=== PATIENT | female | born 1980 | race Caucasian/White ===

== ENCOUNTER 2025-05-03 22:22 | Inpatient (IN) | payer OTHER ==
[~2025-05-03] VITALS: Ht 167.6 cm; Wt 75.0 kg
[2025-05-03 23:17] LABS: PLATELET COUNT (AUTO) 434 K/uL (150-450); RED BLOOD CELL COUNT(AUTO) 4.93 MIL/uL (4.00-5.20); RED CELL DISTRIBUTION WIDTH 16.2 % (11.5-14.5); WHITE BLOOD COUNT (AUTO) 6.7 K/uL (4.5-11.0)
[2025-05-03 23:18] LABS: COVID AG,FIA SOURCE NASAL SWAB
[2025-05-03 23:19] LABS: APPEARANCE,URINE HAZY (CLEAR); GLUCOSE, URINE (UA) NEGATIVE (NEGATIVE); LEUKOCYTE ESTERASE ,URINE TRACE (NEGATIVE); NITRATE,URINE POSITIVE (NEGATIVE); OCCULT BLOOD,URINE NEGATIVE (NEGATIVE); PH,URINE DRUG SCREEN 6.0 (5.0-8.0); SPECIFIC GRAVITIY, URINE 1.027 (1.003-1.030)
[2025-05-03 23:23] LABS: ALCOHOL, URINE DRUG SCREEN NEGATIVE (NEGATIVE); AMPHET/METH SCREEN,URINE NEGATIVE (NEGATIVE); BARBITURATE SCREEN, URINE NEGATIVE (NEGATIVE); CANNABINOID SCREEN,URINE NEGATIVE (NEGATIVE); COCAINE SCREEN,URINE NEGATIVE (NEGATIVE); METHADONE SCREEN, URINE NEGATIVE (NEGATIVE)
[2025-05-03 23:25] LABS: CALCIUM, TOTAL 9.2 mg/dL (8.8-10.5); CREATININE 0.81 mg/dL (0.60-1.30); GLOMERULAR FILTR. RATE CALC > 60 mL/min (>60); GLUCOSE,RANDOM 147 mg/dL (70-110); SODIUM SERUM 137 mmol/L (136-145); UREA NITROGEN, BLOOD 11 mg/dL (7-18)
[2025-05-03 23:43] LABS: SARS-COV2 (COVID) ANTIGEN,FIA Negative (Negative)
[2025-05-03 23:53] LABS: SQUAMOUS EPITHELIAL CELL,UR Rare /LPF (None Seen)
[2025-05-04] MEDS: CEPHALEXIN MONOHYDRATE 500 MG CAPSULE PO ONE (01:09)
[2025-05-04 01:40] VITALS: BP 119/61; PULSE 63; RESP 18; TEMP 97.9; O2SAT 98
[2025-05-04 04:40] VITALS: BP 105/63; PULSE 73; RESP 18; TEMP 98.1; O2SAT 97
[2025-05-04 10:10] VITALS: BP 102/62; PULSE 66; RESP 18; TEMP 97.9; O2SAT 100
[2025-05-04] MEDS ORDERED: BISACODYL 10 MG RECTAL RECTAL SUPPOSITORY PR PRN (12:15)
[2025-05-04] MEDS ORDERED: ONDANSETRON HCL 4 MG/2 ML VIAL IVP PRN (12:15)
[2025-05-04] MEDS ORDERED: MAGNESIUM HYDROXIDE SUSPENSION 30 ML UDCUP PO PRN (12:15)
[2025-05-04] MEDS ORDERED: ACETAMINOPHEN 325 MG TABLET PO PRN (12:15)
[2025-05-04] MEDS ORDERED: ZOLPIDEM TARTRATE 5 MG TABLET PO PRN (12:15)
[2025-05-04] MEDS: LACTULOSE 20 GM/30 ML SOLUTION UDCUP PO SCH (12:41)
[2025-05-04] MEDS: HEPARIN SODIUM,PORCINE 5,000 UNITS/ML VIAL SQ SCH (15:59)
[2025-05-04] MEDS: CEPHALEXIN MONOHYDRATE 500 MG CAPSULE PO SCH (16:00)
[2025-05-04] MEDS: DOCUSATE SODIUM 100 MG CAPSULE PO SCH (20:50)
[2025-05-04 21:17] VITALS: BP 107/64; PULSE 82; RESP 18; TEMP 98.2; O2SAT 98
[2025-05-05 05:25] VITALS: BP 95/69; PULSE 56; RESP 17; TEMP 97.7; O2SAT 98
[2025-05-05] MEDS: PANTOPRAZOLE SODIUM 40 MG DR TABLET PO SCH (09:02)
[2025-05-05 09:24] VITALS: BP 106/73; PULSE 66; RESP 18; TEMP 98.6; O2SAT 97
[2025-05-05 20:16] VITALS: BP 100/68; PULSE 81; RESP 20; TEMP 97.7; O2SAT 95
[2025-05-06 04:15] VITALS: BP 94/61; PULSE 78; RESP 18; TEMP 97.5; O2SAT 98
[2025-05-06 08:00] VITALS: BP 104/62; PULSE 75; RESP 20; TEMP 97.7; O2SAT 99
[2025-05-06] MEDS ORDERED: CEPH-558 PO (11:37)
[2025-05-06] MEDS ORDERED: DOCU-385 PO (11:37)
[2025-05-06] MEDS ORDERED: LACT10SO85 PO (11:38)
[2025-05-06 20:23] VITALS: BP 98/61; PULSE 74; RESP 17; TEMP 98.1; O2SAT 99
[2025-05-07 04:25] VITALS: BP 102/68; PULSE 60; RESP 18; TEMP 98.2; O2SAT 96
== END 2025-05-07 06:24 | DRG 690 ==
LOC: EMS 23:37 → EDH 23:39 → 6S 05-04 01:12
PROVIDERS: ADMIT Internal Medicine; ATTEND Internal Medicine
DX: N39.0 Urinary tract infection, site not specified (principal); R45.851 Suicidal ideations; K59.00 Constipation, unspecified; F43.29 Adjustment disorder with other symptoms; Z20.822 Contact with and (suspected) exposure to COVID-19
CPT/HCPCS: 74176; 80048; 80307; 81001; 84703; 85025; 87077; 87086; 87186; 99285; G0378; G0480; J1644